=== PATIENT | female | born 1955 | race Caucasian/White ===

== ENCOUNTER 2025-06-20 08:08 | Emergency (ER) | payer MEDICARE, MEDICAID, SELFPAY ==
--- OUTSIDE RECORDS SUMMARY | 2025-04-16 03:30 | XMS_ITS | Continuity of Care Document ---
Author Organization [facility] Address [address] [place] [id number] Phone Care Team Providers Care Meat And Seafood Manager Name Role Phone Royer VELEZ, FACC, Shahbaz Unavailable Unavailab le Allergies, Adverse Reactions, Alerts Substance Reaction Status Criticality dicyclomine Active No Information codeine Active No Information Medications Medication Instructions Dosage Effective Dates (start - stop) Status Comments amlodipine 5 mg tablet take 1 tablet by oral route every evening - Active Mounjaro 10 mg/0.5 mL subcutaneous pen injector inject (10MG) by subcutaneous route every week 10 MG - Active levothyroxine 50 mcg tablet take 1 tablet by oral route every day 50 MCG - Active gabapentin 600 mg tablet take 1 tablet by oral route every day 600 MG - Active ezetimibe 10 mg tablet take 1 tablet by oral route every day 10 MG - Active escitalopram 10 mg tablet take 1 tablet by oral route every day 10 MG - Active furosemide 40 mg tablet take 1 tablet by oral route every day 40 MG - Active omeprazole 40 mg capsule,delayed release TAKE 1 CAPSULE BY MOUTH IN THE MORNING BEFORE BREAKFAST - Active metformin 1,000 mg tablet TAKE 1 TABLET BY MOUTH IN THE MORNING AND IN THE EVENING WITH MEALS - Active atorvastatin 80 mg tablet TAKE 1 TABLET BY MOUTH NIGHTLY - Active Linzess 145 mcg capsule TAKE 1 CAPSULE BY MOUTH IN THE MORNING - Active carvedilol 3.125 mg tablet take 1 tablet by oral route 2 times every day with food 3.125 MG - No Longer Active Mounjaro 10 mg/0.5 mL subcutaneous pen injector - No Longer Active levothyroxine 50 mcg tablet - No Longer Active ezetimibe 10 mg tablet No Longer Active carvedilol 3.125 mg tablet - No Longer Active gabapentin 600 mg tablet - No Longer Active escitalopram 10 mg tablet No Longer Active Procedures Procedure Date Complex e/m visit add on OFFICE/OUTPATIENT VISIT, EST Complex e/m visit add on OFFICE/OUTPATIENT VISIT, EST OFFICE/OUTPATIENT VISIT, EST ELECTROCARDIOGRAM, COMPLETE HT MUSCLE IMAGE SPECT, MULT CARDIOVASCULAR STRESS TEST Technetium TC 99m sestamibi Regadenoson injection TTE W/DOPPLER, COMPLETE ELECTROCARDIOGRAM REPORT Advance Directives Directive Yes / No Effective Date File Name No Information Encounters Encounter Description Practice Location Reason(s) For Visit Diagnoses Date Provider Providers Copied on Encounter OFFICE/OUTPA TIENT VISIT, [facility], [address] [place] [address], [id number] , tel: [phone] [facility] [place] Follow Up of 1 mo (chief complaint) CADCVAHTNSOBEdema Sep Royer Hartmann. [facility] [address] , [place], [place], [id number] , . tel: [phone] Referring Provider: Shah[facility], [facility] , [place], [address] . tel:[phone] OFFICE/OUTPA TIENT VISIT, [facility], [address] [place] [address], [id number] , tel: [phone] [facility] follow up (chief complaint) Body mass index [BMI] 25.0-25.9, adultCADCVAHTNEdema 5 Royer Hartmann. [facility] , [place], [place], [id number] , . tel: [phone] Referring Provider: Fariha Chandler, [address], [place], [address]. tel:[phone] OFFICE/OUTPA TIENT VISIT, EST [facility], [address] [place] [address], [id number] , tel: [phone] [facility] Follow Up of cardiology exam (chief complaint)S OB (chief complaint)s welling in legs (chief complaint) CADHTNCVASOBEdema 5 Osito Cortez. [facility] [address] , [place], [place], [id number] , . tel: [phone] Referring Provider: Shahbaz Linton, [address], [place], [address] . tel:[phone] [facility], [address] [place] [address], [id number] , tel: [phone] [facility] [place] No Information 5 Royer Hartmann. [address] [place], [id number] , . tel: [phone] [facility], [address] [place] [address], [id number] , tel: [phone] [facility] [place] No Information 5 Royer Hartmann. [facility] [place], [place], [id number] , . tel: [phone] Referring Provider: Shahbaz Linton, [address], [place], [address] . tel:[phone] [facility], [address] [place] [address], [id number] , tel:[phone] [facility] No Information Royer Hartmann. [address] [place], [place], [id number] , . tel: [phone] Referring Provider: Shahbaz Linton, [address] [facility], [place], [address] . tel:[phone] [facility] , [address], [place], [id number] , tel: [phone] [facility] No Information Royer Hartmann. [address], [place], [id number] , . tel: [phone] Referring Provider: Shahbaz Linton, [address] [facility], [place], [address] . tel:[phone] Family History Family Member Type Diagnosis Age At Onset No Information Payers Payer name Insurance type Covered alliance party ID Wendy mcpherson(s) [facility] DUAL COMPLETE CHOICE PPO [id number] Social History Type Description Quantity Date Captured Comments Alcohol Use Details Unknown Caffeine Use Details Unknown Tobacco Use Status No Information Smoking Status No Information Sex Female Vital Signs Date / Time: Height Weight BMI Pulse Rate Blood Pressure Temperature Respiratory Rate Body Surface Area Head Circumference Head Circ. Percentile Wt./Niko. Percentile BMI percentile Pulse Ox Inhaled Ox 9:54 AM 71.668 kg (158.00 lbs) 52 /min 173/84 mm[Hg] 16 /min 97 % Chief Complaint And Reason For Visit From encounter dated '04/16/2025 09:30'. Follow Up of 1 mo (chief complaint) Reason For Referral Reason For Referral No Information Plan Of Treatment Date Type Action Status Goal Dietary manageme nt education, guidance, and counseling completed Appointment Radha Bolden BOOKED Future Order: Lab Order CBC Plat elet and Hem Review ([id number]), Ordered on: Ordered Future Order: Lab Order Hemoglob in A1c ([id number]), Ordered on: Ordered Future Order: Lab Order [id number] FR ([id number]), Ordered on: Ordered Future Order: Lab Order Lipid Pa jean ([id number]), Ordered on: Ordered Future Order: Lab Order proBNP ( [id number]), Ordered on: Ordered Future Order: Lab Order Thyroid Profile(T3, T4, T3U, FT4, TSH) ([id number]), Ordered on: Ordered History Of Present Illness Encounter Date Complaint History Of Prese nt Illness Follow Up of 1 mo follow up Follow Up of cardiology exam SOB swelling in legs Functional Status Date Functional Assessmen t No Information Medications Administered Medication Instructions Dosage Effective Dates (start - stop) Status Comments carvedilol 3.125 mg tablet take 1 tablet by oral route 2 times every day with food 3.125 MG - No Longer Active Instructions Date Instruction Additional Infor kennedi Dietary management e ducation, guidance, and counseling Related to Body mass index [BMI] 25.0-25.9, adult Assessments Type Assessment Date assessment CAD assessment CVA assessment HTN assessment SOB assessment Edema Patient Care Teams Name Effective Dates (start - stop) Status Members No Information
--- NOTE | ~2025-06-20 | CT_ITS ---
Radha Bolden EXAMINATION: CT abdomen pelvis w con COMPARISON: None HISTORY: abdominal pain TECHNIQUE: Axial images were obtained through the abdomen, pelvis post administration of IV contrast. Oral contrast was also administered. Coronal reconstruction images were obtained from the axial views. CT scan performed using dose optimization techniques including the following automated exposure control; adjustment of mA and/or kV; use of iterative reconstruction technique. Automatic exposure control was used to reduce radiation dose. Permanent radiation dose record is archived to PACS. FINDINGS: CT abdomen: LUNG BASES: The lung bases are clear. The visualized portions of the heart and pericardium are unremarkable. LIVER: Mild hepatic steatosis. Portal vein patent. No intrahepatic biliary duct dilatation. SPLEEN: Unremarkable. KIDNEYS: Right Kidney: Unremarkable. No calculi. No hydronephrosis. Left Kidney: Unremarkable. No calculi. No hydronephrosis ADRENAL GLANDS: Unremarkable. PANCREAS: Mild pancreatic atrophy. GALLBLADDER/BILIARY: Unremarkable. No biliary dilatation. STOMACH AND ESOPHAGUS: Thickening of the esophagus may represent esophagitis. There is mild thickening of the distal stomach with mild mucosal hyperemia. BOWEL/MESENTERY: Moderate fecal content. Moderate diverticulosis, no colitis or diverticulitis. Appendix normal. Mesentery normal. No thickening or dilated loops of small bowel. ADENOPATHY/RETROPERITONEUM: No lymphadenopathy. AORTA/VASCULATURE: Normal caliber aorta. FREE FLUID OR FREE AIR: No free fluid.. CT pelvis: SOLID ORGANS/REPRODUCTIVE: Post hysterectomy. No adnexal mass. BLADDER: Circumferential thickening of the bladder noted. OSSEOUS STRUCTURES: No acute osseous abnormality.No suspicious lesions. OVERLYING SOFT TISSUES: Mild diastases of the abdominal wall. IMPRESSION: 1. Mild cystitis. 2. Mild esophagitis with probable gastritis. Reviewed, dictated and finalized at location P. SERVICES MANAGER
[2025-06-20 08:11] VITALS: BP 171/53; PULSE 60; RESP 16; TEMP 36.9; O2SAT 100
[2025-06-20 09:09] LABS: Hematocrit 35.1 % (37.0-47.0); Hemoglobin 11.1 g/dL (12.0-15.0); Immature Granulocyte Percent A 0.3 % (0-0.5); Lymphocytes Absolute Auto 1.48 K/mm3 (0.9-3.2); Mean Corpuscular HGB Conc 31.6 g/dl (32-36); Mean Corpuscular Hemoglobin 27.5 pg (26-34); Mean Corpuscular Volume 87.1 fl (80-100); Nucleated Red Blood Cells Absolute Auto 0.000 K/mm3 (0.0-0.012); Nucleated Red Blood Cells Perc 0.0 % (0.0-0.2); Platelet Count Result 201 k/mm3 (150-375); Red Blood Count 4.03 M/mm3 (4.2-5.4); White Blood Count 6.4 K/mm3 (4.5-10.0)
--- NOTE | 2025-06-20 09:10 | ED.ABDPAIN ---
HPI - Abdominal Pain General Chief Complaint: Abdominal Pain Stated Complaint: left flank pain Time Seen by Provider: 06/20/25 08:53 History of Present Illness HPI narrative: 69-year-old female presenting with left lower abdominal pain since early this morning. Patient reports the pain radiates to her back and she unable to get comfortable. Denies hematuria, dysuria, increased urinary frequency /urgency, bowel concerns, fevers/chills, nausea /vomiting / diarrhea, and chest pain/shortness of breath. Related Data Allergies Allergy/AdvReac Type Severity Reaction Status Date / Time codeine Allergy Intermediate Rash Verified 06/20/25 08:45 dicyclomine Allergy Intermediate Itching Verified 06/20/25 08:45 Review of Systems Review of Systems: All systems reviewed & are unremarkable except as noted in HPI and below Exam Narrative: GENERAL: Uncomfortable-appearing HEAD: Normocephalic, atraumatic. EYES: PERRLA and EOMI. ENT: Nares clear, no rhinorrhea or epistaxis. Mucous membranes moist. Oropharynx without tonsillar hypertrophy exudate or other lesions. Bilateral TMs pearly tompkins non-bulging NECK: Supple. No adenopathy or masses. No carotid bruits or JVD CHEST: Clear to auscultation. No respiratory distress. No wheezes rales or rhonchi HEART: Regular rate and rhythm. No murmur heard. Normal peripheral pulses. ABDOMEN: Soft, nondistended, normal active bowel sounds. LLQ TTP, left lower back/flank TTP EXTREMITIES: Normal range of motion. No edema. SKIN: Warm, dry, no rash. NEURO: No focal deficits. Alert and oriented x3. PSYCH: Normal mood and affect Course Vital Signs Vital signs: Vital Signs Temperature 98.5 F 06/20/25 08:11 Pulse Rate 60 06/20/25 08:11 Respiratory Rate 16 06/20/25 08:11 Blood Pressure 171/53 H 06/20/25 08:11 Pulse Oximetry 100 06/20/25 08:11 Oxygen Delivery Room Air 06/20/25 08:11 Temperature 98.5 F 06/20/25 08:11 Pulse Rate 61 06/20/25 11:08 Respiratory Rate 20 06/20/25 11:08 Blood Pressure 160/78 H 06/20/25 11:08 Pulse Oximetry 99 06/20/25 11:08 Oxygen Delivery Room Air 06/20/25 08:11 MDM - Abdominal Pain MDM Narrative Medical decision making narrative: 69-year-old female presenting with left lower abdominal pain since early this morning. Patient reports the pain radiates to her back and she unable to get comfortable. Denies hematuria, dysuria, increased urinary frequency /urgency, bowel concerns, fevers/chills, nausea /vomiting / diarrhea, and chest pain/shortness of breath. Patient's abdomen is soft without significant pain or signs of surgical abdomen on serial exams. Patient?s back pain is positional and localized to paraspinal muscles. Normal neurologic exams. No red flag symptoms. No fever noted and vitals stable. Lab and CT evaluations are reviewed and patient is felt to be a reasonable candidate for outpatient management for mild cystitis and musculoskeletal pain. Given Tylenol and muscle relaxer for pain. Sending with outpatient muscle relaxer and course of Keflex. Patient was instructed as to limitations of CT and laboratory evaluation and encouraged to follow with PCP for further evaluation. Given reasons to return to the ED. Medical Records Attestation: I reviewed the patient's medical records. Lab Data Attestation: I reviewed the patient's lab results. 06/20/25 08:59 06/20/25 08:59 Labs: Lab Results 06/20/25 Range/Units 08:59 WBC 6.4 (4.5-10.0) K/mm3 RBC 4.03 L (4.2-5.4) M/mm3 Hgb 11.1 L (12.0-15.0) g/dL Hct 35.1 L (37.0-47.0) % MCV 87.1 (80-100) fl MCH 27.5 (26-34) pg MCHC 31.6 L (32-36) g/dl RDW 13.7 (11.5-14.5) % Plt Count 201 (150-375) k/mm3 MPV 11.8 H (7.4-10.4) fl Immature Gran % (Auto) 0.3 (0-0.5) % Neut % (Auto) 67.1 (45.5-73.1) % Lymph % (Auto) 23.1 (18.3-44.2) % [place] % (Auto) 5.9 (2.6-8.5) % Eos % (Auto) 2.7 (0-4.4) % Baso % (Auto) 0.9 (0.2-1.2) % Lymph # (Auto) 1.48 (0.9-3.2) K/mm3 [place] # (Auto) 0.4 (0.1-0.6) K/mm3 Eos # (Auto) 0.2 (0-0.3) K/mm3 Baso # (Auto) 0.1 (0.0-0.1) K/mm3 Abs Immat Gran (auto) 0.02 (0.00-0.031) K/mm3 Absolute Neuts (auto) 4.3 (1.3-6.7) K/mm3 Absolute Nucleated RBC 0.000 (0.0-0.012) K/mm3 Nucleated RBC % 0.0 (0.0-0.2) % Sodium 138 (137-145) mmol/L Potassium 4.3 (3.4-5.0) mmol/L Chloride 105 (98-107) mmol/L Carbon Dioxide 26 (22-30) mmol/L Anion Gap 7 (4-12) mmol/L BUN 20 H (7-17) mg/dL Creatinine 0.97 (0.7-1.0) mg/dL Estim Creat Clear Calc 45 ml/min Estimated GFR 57 L (59 - ) Glucose 256 H (65-110) mg/dL Calcium 9.6 (8.4-10.2) mg/dL Total Bilirubin 0.9 (0.2-1.3) mg/dL AST 24 (14-36) U/L ALT 18 (6-35) U/L Alkaline Phosphatase 64 (38-126) U/L Total Protein 8.0 (6.3-8.2) g/dL Albumin 4.4 (3.5-5.1) g/dL Lipase 262 (23-300) U/L Urine Color Yellow (Yellow) Urine Appearance Clear (Clear) Urine pH 6.5 (5.0-9.0) Ur Specific [place] 1.022 (1.001-1.035) Urine Protein 2+ H (Negative) mg/dL Urine Glucose (UA) 3+ H (Negative) mg/dL Urine Ketones Negative (Negative) mg/dL Ur Blood (Man) Negative (Negative) Urine Nitrate Negative (Negative) Urine Bilirubin Negative (Negative) Urine Urobilinogen 0.2 (<2.0) mg/dL Leukocyte Esterase Rfl Negative (Negative) ALBERTO/UL Urine RBC 0-2 (0-2) /hpf Urine WBC 6-10 H (0-3) /hpf Ur Squamous Epith Cells None seen (Few) /hpf Urine Bacteria 4+ H /hpf Urine Casts 0-2 Imaging Data Attestation: I personally reviewed and interpreted this imaging study as follows: Radiologist's impression: ITS Impressions Abdomen/Pelvis CT 06/20/25 09:47 IMPRESSION: 1. Mild cystitis. 2. Mild esophagitis with probable gastritis. Discharge Plan Discharge Clinical Impression: Cystitis, Muscle strain Patient Disposition: Home Condition: Stable Instructions: Antibiotic Form, Urinary Tract Infection in Women (ED), Back Pain (ED) Additional Instructions: Take antibiotics as prescribed. Rest, use ice/heat, take Tylenol as needed for pain. Take muscle relaxers as needed and prescribed. Recommend taking these at night as they may cause sedation. Do not drive, operate heavy machinery, drink alcohol while on muscle relaxers as this may cause further sedation. Follow-up with your primary care doctor in the next 1 week for further evaluation. Return to the ED if you experience worsening or severe pain, recurrent injury, numbness in groin, weakness of legs, going to the bathroom without meaning to, unable to keep down food or drink, or any other symptoms of concern. Patient Language: Amharic Prescriptions: New cephalexin 500 mg capsule 500 mg PO Q12H Qty: 14 0RF cyclobenzaprine 10 mg tablet 10 mg PO TID PRN (Reason: muscle spasm) Qty: 20 0RF Follow-up/Referrals: PHYSICIAN NOT ON STAFF,NONSTAFF [Non-Staff]
[2025-06-20 09:13] LABS: Add Urine Microscopic? YES; Appearance Urine Clear (Clear); Glucose Urine UA 3+ mg/dL (Negative); Leukocyte Esterase Ur Negative LEU/UL (Negative); Nitrate Urine Negative (Negative); Non Pathogenic Casts 0-2; Specific Grav Ur 1.022 (1.001-1.035)
[2025-06-20 09:23] LABS: Alanine Aminotransferase 18 U/L (6-35); Albumin Level 4.4 g/dL (3.5-5.1); Alkaline Phosphatase 64 U/L (38-126); Anion Gap 7 mmol/L (4-12); Aspartate Amino Transferase 24 U/L (14-36); Bilirubin,Total 0.9 mg/dL (0.2-1.3); Blood Urea Nitrogen 20 mg/dL (7-17); Calcium 9.6 mg/dL (8.4-10.2); Carbon Dioxide 26 mmol/L (22-30); Chloride 105 mmol/L (98-107); Estimated CRCL calculation 45 ml/min; Estimated Glomerular Filt Rate 57; Glucose 256 mg/dL (65-110); Lipase 262 U/L (23-300); Potassium 4.3 mmol/L (3.4-5.0); Sodium 138 mmol/L (137-145); Total Protein 8.0 g/dL (6.3-8.2)
[2025-06-20] MEDS: ACETAMINOPHEN 500 MG TABLET 1000 MG PO (11:04)
[2025-06-20 11:08] VITALS: BP 160/78; PULSE 61; RESP 20; O2SAT 99
== END 2025-06-20 11:41 | disposition home or self-care (01) ==
PROVIDERS: Emergency Medicine
DX: N30.90 Cystitis, unspecified without hematuria (principal); T14.8XXA Other injury of unspecified body region, initial encounter; X58.XXXA Exposure to other specified factors, initial encounter; K20.90 Esophagitis, unspecified without bleeding
CPT/HCPCS: 36415; 74177; 80053; 81001; 83690; 85025; 87077; 87086; 87186; 99284; A9270; Q9967